=== PATIENT | female | born 1995 | race Caucasian/White ===

== ENCOUNTER → 2025-07-29 | Outpatient (REF) | payer OTHER ==
[~2025-07-29] MED LIST: CEFD1CAP9 PO; NORE5TAB; ONDA16TA PO; ORIL150T; PEPC1TAB5 PO; SEMA1PEN4; SERTRALINE
[2025-07-29 13:56] LABS: ALT/SGPT 18 U/L (7.0-40); AST/SGOT 12 U/L (<34); CALCIUM LEVEL 9.7 MG/DL (8.5-10.1); CARBON DIOXIDE LEVEL 26 MMOL/L (20-31); CHLORIDE LEVEL 107 MMOL/L (98-107); CHOLESTEROL LEVEL 221 MG/DL (<200); CHOLESTEROL RISK RATIO 4.68 (<5); CREATININE FOR GFR 0.68 MG/DL (0.55-1.30); GLOMERULAR FILTRATION RATE > 90.0 (>60); LDL CHOLESTEROL 153.8 MG/DL (<100); NON-HDL-C 173.8 MG/DL; POTASSIUM SERUM 4.7 MMOL/L (3.5-5.1); SODIUM LEVEL 141 MMOL/L (136-145); TRIGLYCERIDES LEVEL 100 MG/DL (<150)
[2025-07-29 14:19] LABS: ESTIMATED AVERAGE GLUCOSE 100.0 MG/DL (60-110)
== END ==
LOC: M LAB REF 13:06
PROVIDERS: ATTEND Family Medicine Addiction Medicine
DX: E66.9 Obesity, unspecified (principal); Z68.29 Body mass index [BMI] 29.0-29.9, adult

== ENCOUNTER 2025-08-09 14:17 | Emergency (ER) | payer OTHER ==
[~2025-08-09] VITALS: Ht 172.7 cm; Wt 85.2 kg
[2025-08-09] MEDS ORDERED: ORIL150T (14:26)
[2025-08-09] MEDS ORDERED: SEMA1PEN4 (14:26)
[2025-08-09] MEDS ORDERED: ONDA16TA PO (14:26)
[2025-08-09] MEDS ORDERED: NORE5TAB (14:26)
[2025-08-09] MEDS ORDERED: PEPC1TAB5 PO (14:26)
[2025-08-09] MEDS ORDERED: SERTRALINE (14:26)
[2025-08-09 15:06] LABS: KETONE, URINE AUTO RFX NEGATIVE (NEGATIVE); LEUKOCYTE ESTERASE UR AUTO RFX 2+ (NEGATIVE); MUCUS, URINE RFX SMALL (NEGATIVE); NITRITE, URINE AUTO RFX NEGATIVE (NEGATIVE); RBC, URINE AUTO RFX 11 /HPF (0-3); SQUAM EPITHELIAL CELL UR AURFX 13 /HPF (0-6); WBC, URINE AUTO RFX 120 /HPF (0-3)
[2025-08-09 15:09] LABS: BASO # 0.0 10^3/uL (0.0-0.2); BASO % 0.2 % (0.0-1.0); EOS # 0.2 10^3/uL (0.0-0.5); EOS % 2.2 % (0.0-3.0); LYMPH # 2.1 10^3/uL (1.5-5.0); LYMPH % 25.0 % (24.0-44.0); MONO # 0.5 10^3/uL (0.0-0.8); MONO % 5.6 % (2.0-8.0); NEUTROPHILS # 5.5 10^3/uL (1.5-8.5); NEUTROPHILS % 66.5 % (36.0-66.0); PLATELET COUNT, AUTOMATED 265 10^3/uL (150-450)
[2025-08-09 15:34] LABS: ALT/SGPT 16 U/L (7.0-40); AST/SGOT 11 U/L (<34); CALCIUM LEVEL 9.2 MG/DL (8.5-10.1); CARBON DIOXIDE LEVEL 25 MMOL/L (20-31); CHLORIDE LEVEL 105 MMOL/L (98-107); CREATININE FOR GFR 0.73 MG/DL (0.55-1.30); GLOMERULAR FILTRATION RATE > 90.0 (>60); POTASSIUM SERUM 3.8 MMOL/L (3.5-5.1); SODIUM LEVEL 141 MMOL/L (136-145)
[2025-08-09 15:43] LABS: HCG, SERUM QUALITATIVE NEGATIVE (NEGATIVE)
[2025-08-09 16:48] VITALS: BP 125/84; TEMP 97.8; O2SAT 97
[2025-08-09] MEDS ORDERED: CEFD1CAP9 PO (16:48)
== END 2025-08-09 16:52 | disposition home or self-care (01) ==
LOC: M ED 14:17
DX: N10 Acute pyelonephritis (principal); N39.0 Urinary tract infection, site not specified; F41.9 Anxiety disorder, unspecified; F32.A Depression, unspecified; Z79.2 Long term (current) use of antibiotics; Z79.899 Other long term (current) drug therapy; Z79.4 Long term (current) use of insulin